=== PATIENT | female | born 1965 | race Caucasian/White ===

== ENCOUNTER 2023-02-22 23:48 | Emergency (ER) | payer BC ==
[~2023-02-22] VITALS: Ht 165.1 cm; Wt 99.8 kg
[2023-02-22 23:50] VITALS: BP 150/90; PULSE 82; RESP 17; TEMP 97.8; O2SAT 95
[2023-02-23] MEDS ORDERED: MORPHINE SULFATE 4 MG/ML SYR IM ONE (01:45)
[2023-02-23] MEDS ORDERED: GABA300C PO (01:50)
[2023-02-23] MEDS ORDERED: ACET-5636 PO (01:50)
[2023-02-23] MEDS ORDERED: LIDO4CRE18 TP (02:06)
== END 2023-02-23 02:10 | disposition home or self-care (01) ==
LOC: MED 23:48
DX: B02.9 Zoster without complications (principal); Z98.890 Other specified postprocedural states; Z79.899 Other long term (current) drug therapy
CPT/HCPCS: 96372; 99283; J2270

== ENCOUNTER 2023-03-05 22:44 | Emergency (ER) | payer BC ==
[~2023-03-05] VITALS: Ht 165.1 cm; Wt 104.3 kg
[~2023-03-05 22:44] MED LIST: ACET-5636 PO; GABA300C PO; LIDO4CRE18 TP
[2023-03-05 23:08] VITALS: BP 139/86; PULSE 76; RESP 18; TEMP 98; O2SAT 99
[2023-03-06 00:01] LABS: BASOPHILS # (AUTO) 0.1 K/uL (0.00-0.22); BASOPHILS % (AUTO) 1.5 % (0.0-2.0); EOSINOPHILS # (AUTO) 0.3 K/uL (0-0.4); EOSINOPHILS % (AUTO) 4.2 % (0.0-4.0); HEMATOCRIT 38.7 % (36-48); HEMOGLOBIN 12.6 g/dL (12.0-16.0); LYMPHOCYTES # (AUTO) 2.4 K/uL (2.5-16.5); LYMPHOCYTES % (AUTO) 31.3 % (20.5-51.1); MEAN CORPUSCULAR HEMOGLOBIN 29 pg (27-31); MEAN CORPUSCULAR HGB CONC 33 g/dL (33-37); MEAN CORPUSCULAR VOLUME 87.6 fL (80-94); MONOCYTES # (AUTO) 0.6 K/uL (0.8-1.0); NEUTROPHILS # (AUTO) 4.2 K/uL (1.8-7.7); PLATELET COUNT (AUTO) 235 K/uL (140-450); RED BLOOD CELL COUNT(AUTO) 4.42 MIL/uL (4.20-5.40); RED CELL DISTRIBUTION WIDTH 15.1 % (11.6-13.7); WHITE BLOOD COUNT (AUTO) 7.7 K/uL (4.8-10.8)
[2023-03-06 00:17] LABS: INR 0.93 (0.8-1.2); PARTIAL THROMBOPLASTIN TIME 26.7 secs (22-35.6); PROTHROMBIN TIME 9.8 secs (10.8-13.4)
[2023-03-06 00:19] LABS: ALANINE AMINOTRANSFERASE 19 U/L (12-78); ALBUMIN 3.3 g/dL (3.4-5.0); ALKALINE PHOSPHATASE 130 U/L (50-136); ASPARTATE AMINOTRANSFERASE 7 U/L (15-37); CALCIUM 8.2 mg/dL (8.5-10.1); CHLORIDE 105 mmol/L (98-107); CREATININE 1.1 mg/dL (0.6-1.3); GFR ARICAN-AMERICAN 66 mL/min (>90); GFR NON ARICAN-AMERICAN 54 mL/min (>90); GLUCOSE 114 mg/dL (74-106); SODIUM SERUM 139 mmol/L (136-145); TOTAL BILIRUBIN 0.2 mg/dL (0.0-1.0); TOTAL PROTEIN, SERUM 7.3 g/dL (6.4-8.2); UREA NITROGEN, BLOOD 23 mg/dL (7-18)
[2023-03-06 00:43] LABS: APPEARANCE,URINE CLEAR (CLEAR); BILIRUBIN,URINE NEGATIVE (NEGATIVE); BLOOD, URINE NEGATIVE (NEGATIVE); COLOR,URINE YELLOW (YELLOW); LEUKOCYTE ESTERASE ,URINE TRACE (NEGATIVE); NITRITE, URINE NEGATIVE (NEGATIVE); PROTEIN,URINE NEGATIVE (NEGATIVE); UGLUCOSE NEGATIVE (NEGATIVE); UROBILINOGEN,URINE 0.2 EU/dL (0.2 - 1)
[2023-03-06 00:45] VITALS: BP 144/84; PULSE 60; RESP 12; O2SAT 94
[2023-03-06 01:21] LABS: RBC,URINE 0 /HPF (0-5); WBC,URINE 0-5 /HPF (0-5)
[2023-03-06 01:22] LABS: BACTERIA,URINE 1+ /HPF (None Seen); MUCUS,URINE None Seen /LPF (None Seen); SQUAMOUS EPITHELIAL CELL,UR 4-10 (MOD) /LPF (0-3 (FEW))
[2023-03-06] MEDS ORDERED: ASPIRIN 325 MG TAB PO ONE (01:35)
[2023-03-06] MEDS ORDERED: LIDOCAINE 5% 1 EA PATCH TP ONE (02:50)
== END 2023-03-06 02:50 | disposition left against medical advice (07) ==
LOC: MED 22:44
DX: R29.810 Facial weakness (principal); R53.1 Weakness; R20.0 Anesthesia of skin; Z79.899 Other long term (current) drug therapy
CPT/HCPCS: 36415; 70450; 70496; 70498; 71045; 80053; 81001; 84484; 85025; 85610; 85730; 86886; 86900; 86901; 93005; 99291; Q0092; Q9967

== ENCOUNTER 2023-09-10 16:02 | Emergency (ER) | payer BC, MEDICAID ==
[~2023-09-10] VITALS: Ht 165.1 cm; Wt 106.6 kg
[2023-09-10 16:08] VITALS: BP 168/95; PULSE 63; RESP 16; TEMP 97.8; O2SAT 95
[2023-09-10] MEDS ORDERED: ATA25 PO (17:11)
[2023-09-10 17:22] VITALS: BP 167/92; PULSE 66; RESP 16; TEMP 98; O2SAT 98
== END 2023-09-10 17:22 | disposition home or self-care (01) ==
LOC: MED 16:02
DX: R20.2 Paresthesia of skin (principal); G47.00 Insomnia, unspecified; F41.9 Anxiety disorder, unspecified; F43.9 Reaction to severe stress, unspecified; I10 Essential (primary) hypertension; Z79.1 Long term (current) use of non-steroidal anti-inflammatories (NSAID); Z79.899 Other long term (current) drug therapy
CPT/HCPCS: 70450; 82948; 93005; 99284